=== PATIENT | female | born 1985 | race Hispanic/Latino ===

== ENCOUNTER 2017-01-12 09:02 | Emergency (ER) | payer OTHER ==
[~2017-01-12] VITALS: Ht 165.1 cm; Wt 98.0 kg
[~2017-01-12 09:02] MED LIST: AZIT250T2; DERSP TOP; FES300 PO; HYDR1TAB; IBUP-1152 PO; PNV PO; TUCPAD TOP; calcium carbonate PO
[2017-01-12 09:16] VITALS: BP 123/81; PULSE 70; RESP 18; O2SAT 99
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
[2017-01-12] MEDS ORDERED: IBUP800T28 PO (11:28)
[2017-01-12] MEDS ORDERED: CYCL10TA9 PO (11:28)
[2017-01-12 11:47] VITALS: BP 108/73; PULSE 70; RESP 16; O2SAT 98
== END 2017-01-12 11:51 | disposition home or self-care (01) ==
LOC: SED 09:02
DX: S16.1XXA Strain of muscle, fascia and tendon at neck level, initial encounter (principal); V43.52XA Car driver injured in collision with other type car in traffic accident, initial encounter; Y93.89 Activity, other specified; Y99.8 Other external cause status; Y92.410 Unspecified street and highway as the place of occurrence of the external cause; Z90.49 Acquired absence of other specified parts of digestive tract